=== PATIENT | male | born 1995 ===

== ENCOUNTER 2023-11-13 01:12 | Emergency (ER) | payer SELFPAY ==
[~2023-11-13] VITALS: Ht 185.4 cm; Wt 113.4 kg
[2023-11-13 03:15] VITALS: BP 119/81
[2023-11-13 03:27] LABS: Influenza A, PCR NEGATIVE (NEGATIVE); Influenza B, PCR NEGATIVE (NEGATIVE); Resp Syncytial Virus, PCR NEGATIVE (NEGATIVE); SARS-Cov-2 (COVID-19) PCR, MMC NEGATIVE (NEGATIVE)
== END 2023-11-13 03:23 | disposition home or self-care (01) ==
LOC: ER 01:12
PROVIDERS: Emergency Medicine
DX: J45.901 Unspecified asthma with (acute) exacerbation (principal); G47.00 Insomnia, unspecified; Z79.899 Other long term (current) drug therapy
CPT/HCPCS: 0241U; 99284; A9270